=== PATIENT | female | born 1930 | race Caucasian/White ===

== ENCOUNTER → 2017-12-12 | Outpatient (CLI) | payer OTHER ==
[~2017-12-12] MED LIST: ACET325 PO; ALEN70 PO; ASCO500 PO; ASPI325 PO; CALCA600CH PO; CEPH500 PO; CODACE30 PO; CRUTCH2 USE; Coumadin2.5 MG PO; Coumadin5 MG PO; DAILY VALUE1 EACH PO; FISH1000 PO; GEMF600 PO; IBUP800 PO; KELP150 MC1 PO; LOPE2C PO; MULVITA PO; NUTRISOURCE FI1 EACH PO; Prednisone20 MG PO; RXCODACET PO; SULTRIDS PO; SULTRISS PO; St. John's Wor300 MG PO; TOCO1000 PO; TRAZ100 PO; ZOLP5 PO
[2017-12-12 13:42] LABS: International Normalized Ratio 2.54; Prothrombin Time Results 24.8 Sec (9.7-11.5)
== END | disposition home or self-care (01) ==
LOC: LAB 08:29 → LAB SHORT 08:29
PROVIDERS: Nurse Practitioner Family
DX: Z79.01 Long term (current) use of anticoagulants (principal); Z51.81 Encounter for therapeutic drug level monitoring
CPT/HCPCS: 36415; 85610